=== PATIENT | female | born 1955 | race Caucasian/White ===

== ENCOUNTER 2025-09-04 13:21 | Outpatient (CLI) | payer MEDICARE, SELFPAY ==
--- OUTSIDE RECORDS SUMMARY | 2025-08-29 14:20 | XMS_ITS | Encounter Summary ---
Author Organization [facility] Address [facility] [address] 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 Role Phone Alecia Diggs MD Primary Care Provider [phone] Carla Brown LPN Unavailable Unavailab le Reason for Referral * Imaging (Routine) - Authorized Specialty Diagnoses / Procedures Referred By Norma subramanian Referred To Contact Cardiology Diagnoses Heart murmur Procedures Echo, Adult Transthoracic [place] [address] Phone: tel: fax: Referral ID Status Reason Start Date Expiration Date Visits Requested Visits Authorized [id number] Authorized Perform Procedure 5 02/28/2027 1 1 Reason for Visit * Reason Comments Medicare Annual Wellness Visit Initial Cough Care Gap Closure Declined mammogram, colonoscopy, and vaccines Encounter Details Date Type Department Care Team (Late st Contact Info) Description 08/29/2025 2:20 PM EST Office Visit [facility] [place] [address] [place] [address] Routine general medical examination at a health care facility (Primary Dx); Acquired hypothyroidism; Mixed hyperlipidemia; Prediabetes; Cough, unspecified type; Heart murmur; Dysfunction of both eustachian tubes; Ulnar neuropathy of right upper extremity Social History Tobacco Use Types Packs/Day Years Used Date Smoking Tobacco: Former Cigarettes 0.3 40 Passive Smoke Exposure: Never Smokeless Tobacco: Never Tobacco Cessation:Counseling Given: Not Answered Comments:vape Alcohol Use Standard Drinks/Week Comments Never 0 (1 standard drink = 0.6 oz pur e alcohol) Social Connection and Isolation Panel Answer Date Recorded In a typical week, how many times do you talk on the phone with family, friends, or neighbors? More than three times a week 03/30/2024 How often do you get togethe r with friends or relatives? Once a week 03/30/2024 How often do you attend chur or restorationism services? 1 to 4 times per year 03/30/2024 Do you belong to any clubs o r organizations such as anabaptist groups, unions, fraternal or athletic groups, or school groups? No 03/30/2024 How often do you attend meet ings of the clubs or organizations you belong to? Never 03/30/2024 Are you , , di vorced, , never , or living with a partner? 03/30/2024 AUDIT-C Answer Date Recorded Q1: How often do you have a drink containing alcohol? Never 03/30/2024 Q2: How many drinks containi ng alcohol do you have on a typical day when you are drinking? Patient does not drink Q3: How often do you have si x or more drinks on one occasion? Never 03/30/2024 Overall Financial Resource Strain (CARDIA) Answe r Date Recorded How hard is it for you to pa y for the very basics like food, housing, medical care, and heating? Not very hard 02/01/2023 PHQ-2 Answer Date Recorded Patient Health Questionnaire-2 Score 0 08/29/2025 PHQ-9 Answer Date Recorded Patient Health Questionnaire-9 Score 0 08/29/2025 Humiliation, Afraid, Rape, and Kick questionnair e Answer Date Recorded Within the last year, have y ou been afraid of your partner or ex-partner? No 08/27/2025 Within the last year, have y ou been humiliated or emotionally abused in other ways by your partner or ex-partner? No Within the last year, have y ou been kicked, hit, slapped, or otherwise physically hurt by your partner or ex-partner? No 08/27/2025 Within the last year, have y ou been raped or forced to have any kind of sexual activity by your partner or ex-partner? No 08/27/2025 AUDIT-C Answer Date Recorded Q1: How often do you have a drink containing alcohol? Never 08/27/2025 Q2: How many drinks containi ng alcohol do you have on a typical day when you are drinking? Patient does not drink Q3: How often do you have si x or more drinks on one occasion? Never 08/27/2025 [facility] Occupational Stress Questionnaire Answer Date Recorded Do you feel stress - tense, restless, nervous, or anxious, or unable to sleep at night because your mind is troubled all the time - these days? Not at all 08/27/2025 Exercise Vital Sign Answer Date Recorde d On average, how many days pe r week do you engage in moderate to strenuous exercise (like a brisk walk)? 0 days 08/27/2025 On average, how many minutes do you engage in exercise at this level? 0 min 08/27/2025 Hunger Vital Sign Answer Date Recorded Within the past 12 months, y ou worried that your food would run out before you got the money to buy more. Never true 08/27/20 25 Within the past 12 months, t he food you bought just didn't last and you didn't have money to get more. Never true 08/27/2025 PRAPARE - Transportation Answer Date Re corded In the past 12 months, has l ack of transportation kept you from medical appointments or from getting medications? No 04/2025 In the past 12 months, has l ack of transportation kept you from meetings, work, or from getting things needed for daily living? No 08/27/2025 Housing Stability Vital Sign Answer Jesus e Recorded In the last 12 months, was t here a time when you were not able to pay the mortgage or rent on time? No 08/27/2025 In the past 12 months, how m any times have you moved where you were living? 0 08/27/2025 At any time in the past 12 m [place], were you homeless or living in a detention (including now)? No 08/27/2025 [facility] Utilities Answer Date Recorded In the past 12 months has e electric, gas, oil, or water company threatened to shut off services in your home? No 08/27/2025 PHQ-2A Answer Date Recorded Patient Health Questionnaire-2 Score 0 02/01/2023 Comments Unknown Sex and Gender Information Value Date Recorded Sex Assigned at Not on file Legal Sex Female 6:01 PM EDT Gender Identity Not on file Sexual Orientation Not on file documented as of this encounter Last Filed Vital Signs Vital Sign Reading Time Taken Comments Blood Pressure 126/76 08/29/2025 2:23 PM EST Pulse 74 08/29/2025 2:23 PM EST Temperature 37 C (98.6 F) 08/29/2025 2:23 PM EST Respiratory Rate 14 08/29/2025 2:23 PM EST Oxygen Saturation 95% 08/29/2025 2:23 PM EST Inhaled Oxygen Concentration - - Weight 106 kg (233 lb 7.5 oz) 08/29/2025 2:23 PM EST Height 165.1 cm (5' 5 ) 08/29/2025 2:23 PM EST Body Mass Index 38.85 08/29/2025 2:23 PM EST documented in this encounter Functional Status * Over the past 2 weeks, how often have you been bothered by any of the following problems? Question Answer Date of Assessment Author Little interest or pleasure in doing things Not at all 08/29/2025 2:24 PM EST Jovita Gregory Feeling down, depressed, or hopeless Not at all 08/20 2:24 PM EST Jovita Gregory Patient Health Questionnaire-2 Score 0 08/20 2:24 PM EST Jovita Gregory * Question Answer Date of Assessment Author Trouble falling or staying a sleep, or sleeping too much Not at all 08/29/2025 2:24 PM Jovita Velez Feeling tired or having little energy Not at all 06/2025 2:24 PM Jovita Velez Poor appetite or overeating Not at all 08/29/2025 2: 24 PM EST Jovita Gregory Feeling bad about yourself - or that you are a failure or have let yourself or your family down Not at all 08/29/2025 2:24 PM EST Jovita Gregory Trouble concentrating on thi ngs, such as reading the newspaper or watching television Not at all 08/29/2025 2:24 PM Jovita Velez Moving or speaking so slowly that other people could have noticed. Or the opposite - being so fidgety or restless that you have been moving around a lot more than usual Not at all 08/29/2025 2:24 PM EST Jovita Gregory Thoughts that you would be b jose a off or hurting yourself in some way Not at all 08/29/2025 2:24 PM EST Jovita Gregory Patient Health Questionnaire-9 Score 0 08/20 2:24 PM Jovita Velez * Calculated C-SSRS Risk Score (Lifetime/Recent) Answer Date of Assessment Author No Risk Indicated 08/29/2025 2:25 PM EST Payam Gregory * How difficult have these problems made it for you to do your work, take care of things at home, or get along with other people? Answer Date of Assessment Author Not difficult at all 08/29/2025 2:24 PM Jovita Velez * Question Answer Date of Assessment Author 1. Wish to be (Past 1 Month) No 025 2:25 PM EST Jovita Gregory 2. Non-Specific Active Suici momo Thoughts (Past 1 Month) No 08/29/2025 2:25 PM EST Jovita Gregory 6. Suicidal Behavior (Lifetime) No 2:25 PM EST Jovita Gregory documented as of this encounter Miscellaneous Notes * Clinician Note - Jovita Gregory - 08/29/2025 2:20 PM EST Pt aware of AWV protocol and paper given to patient for review. * Progress Notes - Alecia Diggs MD - 08/29/2025 2:20 PM EST Subsequent Medicare Wellness Visit The ABC's of the Annual Wellness Visit Chief Complaint Patient presents with Medicare Annual Wellness Visit Initial Cough Care Gap Closure Declined mammogram, colonoscopy, and vaccines Health risk assessment completed and reviewed with the patient. HPI: Ema Veliz is a 69 y.o. female who presents for a Subsequent Medicare Wellness Visit. Recent Hospitalizations: Current Medical Providers: Patient Care Team: Alecia Diggs MD as PCP - General Carla Brown LPN as Licensed Practical Nurse Health Habits and Functional and Cognitive Screening: Does the patient have evidence of cognitive impairment? No Activities Daily Living: Hearing and Visual Acuity: Hearing/Eye Exam No results found. Home Risk Assessment: Compared to one year ago, the patient feels her physical health is worse and her mental health is worse. Depression Screen: Over the past 2 weeks, how often have you been bothered by any of the following problems? Little interest or pleasure in doing things: Not at all Feeling down, depressed, or hopeless: Not at all Patient Health Questionnaire-2 Score: 0 Over the past 2 weeks, how often have you been bothered by any of the following problems? Trouble falling or staying asleep, or sleeping too much: Not at all Feeling tired or having little energy: Not at all Poor appetite or overeating: Not at all Feeling bad about yourself - or that you are a failure or have let yourself or your family down: Not at all Trouble concentrating on things, such as reading the newspaper or watching television: Not at all Moving or speaking so slowly that other people could have noticed. Or the opposite - being so fidgety or restless that you have been moving around a lot more than usual: Not at all Thoughts that you would be better off or hurting yourself in some way: Not at all Patient Health Questionnaire-9 Score: 0 Past Medical/Family/Social History: Allergies Latex, Naproxen, Percocet [oxycodone-acetaminophen], Sulfacetamide, Sumatriptan, and Wound dressingadhesive Current Medications[1] Medical/Surgical/Social/Family History I have reviewed and updated the patient history. Problem List[2] Objective ROS: Review of Systems Vitals 11/28/2020 11:16 AM 03/21/2021 12:02 PM 12/02/2021 11:04 AM 04/06/2022 10:14 AM 02/01/2023 10:57 AM 04/06/2024 11:00 AM 08/29/2025 2:23 PM Vitals Systolic 124 146 136 148 138 124 126 Diastolic 78 90 82 80 82 86 76 Heart Rate 81 90 85 80 83 78 74 Temp 37.1 C 37.0 C Resp 16 14 Height (cm) 167.6 cm 165.1 cm 165.1 cm 165.1 cm 165.1 cm 165.1 cm 165.1 cm Weight (kg) 98.7 kg 94.348 kg 101.6 kg 101.6 kg 105.9 kg 107.502 kg 105.9 kg BMI 35.12 kg/m2 34.61 kg/m2 37.27 kg/m2 37.27 kg/m2 38.85 kg/m2 39.44 kg/m2 38.85 kg/m2 BSA (m2) 2.14 m2 2.08 m2 2.16 m2 2.16 m2 2.2 m2 2.23 m2 2.2 m2 Visit Report Report Report Report Report Report Report The patient's weight is above average. The patient received The patient received exercise educationbecause they have an above normal BMI. because they have an above normal BMI. Recent Lab Results: Glucose, Plasma (mg/dL) Date Value 04/10/2024 115 (H) 04/06/2024 93 02/01/2023 113 (H) POCT Hemoglobin A1C (%) Date Value 04/06/2022 5.9 Hemoglobin A1c (%) Date Value 04/06/2024 6.0 (H) 02/01/2023 5.9 (H) 12/02/2021 6.1 (H) BUN, Plasma (mg/dL) Date Value 04/10/2024 8 04/06/2024 8 02/01/2023 11 Creatinine, Plasma (mg/dL) Date Value 04/10/2024 0.56 (L) 04/06/2024 0.68 02/01/2023 0.65 Cholesterol, Plasma (mg/dL) Date Value 04/06/2024 161 02/01/2023 237 (H) 12/02/2021 270 (H) Triglycerides, Plasma (mg/dL) Date Value 04/06/2024 150 (H) 02/01/2023 126 12/02/2021 123 HDL (mg/dL) Date Value 04/06/2024 34 (L) 02/01/2023 54 12/02/2021 59 Assessment/Plan Age-appropriate Screening Schedule: Refer to the list below for future screening recommendations based on patient's age, sex and/or medical conditions. Orders for these recommended tests are listed in the plan section. The patient has been provided with a written plan. Health Maintenance Topic Date Due [facility]-Hepatitis C Screening Never done [facility]-Bone Density Scan Never done [id number] Vaccine (1) Never done [facility]-DTaP,Tdap,and Td Vaccines (1 - Tdap) Never done [facility]-Colorectal Cancer Screening Never done [facility]-RSV Vaccine: 60+ Years or (1 - Risk 50-74 years 1-dose series) Never done [facility]-Breast Cancer Screening Never done [facility]-Pneumococcal Vaccine: 50+ Years (1 of 1 - PCV) Never done [facility]-Zoster Vaccines (1 of 2) Never done [facility]-Diabetes: Hemoglobin A1C 04/06/2025 [facility]-Medicare Annual Wellness (AWV) 04/06/2025 [facility]-Influenza Vaccine (1) Never done [facility]- SDOH Screenings 02/25/2026 [facility]-Depression Screening 08/29/2026 HPV Vaccines (No Doses Required) Completed [facility]-Obesity Intervention Completed [facility]-HIB Vaccines Aged Out [facility]-IPV Vaccines Aged Out [facility]-Hepatitis A Vaccines Aged Out [facility]-Rotavirus Vaccines Aged Out [facility]-Cervical Cancer Screening Discontinued The patient was counseled on the importance of the following screenings: Cardiovascular Risk Diabetes [facility] Preventative Services Quick Reference Medicare Risks and Personalized Health Plan co-morbidities The above risks/problems have been discussed with the patient. Pertinent information has been shared with the patient in the After Visit Summary. Follow up plans and orders are seen below in the Assessment/Plan Section. Advanced Care Planning: has NO advanced directive - not interested in additional information Problem List Items Addressed This Visit Hypothyroidism Relevant Medications levothyroxine (Synthroid, Levoxyl) 137 MCG tablet Health Maintenance Due Topic Date Due [facility]-Hepatitis C Screening Never done [facility]-Bone Density Scan Never done [id number] Vaccine (1) Never done [facility]-DTaP,Tdap,and Td Vaccines (1 - Tdap) Never done [facility]-Colorectal Cancer Screening Never done [facility]-RSV Vaccine: 60+ Years or (1 - Risk 50-74 years 1-dose series) Never done [facility]-Breast Cancer Screening Never done [facility]-Pneumococcal Vaccine: 50+ Years (1 of 1 - PCV) Never done [facility]-Zoster Vaccines (1 of 2) Never done [facility]-Diabetes: Hemoglobin A1C 04/06/2025 [facility]-Medicare Annual Wellness (AWV) 04/06/2025 [facility]-Influenza Vaccine (1) Never done An After Visit Summary and PPPS with all of these plans were given to the patient. Follow Up: No follow-ups on file. Office Progress Note Subjective Ema Veliz is a 69 y.o. female who presents for Medicare Annual Wellness Visit Initial, Cough,and Care Gap Closure (Declined mammogram, colonoscopy, and vaccines). History of Present Illness The patient presents for evaluation of dizziness, heart murmur, weight management, and medication management. In June 2025, she sought medical attention at a walk-in clinic due to respiratory issues. The Benzonate prescription provided significant relief, surpassing the efficacy of her inhaler. She is seeking a prescription for this medication. She has been using Flonase nasal spray for the past two weeks but has not tried any antihistamines. Sudafed induces mild side effects, and she has Chlor-Trimeton at home which tends to help her when she uses it. She is requesting refills for her inhaler and hydrocodone. During her visit to the walk-in clinic, a heart murmur was detected. She is uncertain if this was aresult of her congestion. She reports no shortness of breath or chest pain but does experience fatigue, which she attributes to her lack of vitamin intake. She has been experiencing dizziness for over a week, accompanied by a sensation of clogged ears. This has led her to discontinue the use of her hearing aids due to imbalance. She has no history of earwax issues but has noticed an increase in wax production since starting hearing aid use last year. She is considering the use of GLP-1 for weight loss and ivermectin for potential parasitic infection. She reports no food cravings except for red meat after a two to three-week abstinence. 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 She experiences daily knee pain, which limits her ability to perform her morning routine with the animals and carry a bucket of water during winter. She has discontinued pool activities at [facility]. She needs her Synthroid renewed. She has not eaten anything today except water and Tylenol since 0500 hours. She had 10 days' worth of Synthroid last week and thinks she has three days left. She is going to the eye doctor to get her eyes checked. She is going to the dentist and just got a bridge. She is prediabetic and has been drinking Pepsi. The following sections have been reviewed and updated during this encounter: Tobacco Allergies Meds Problems Med Hx Surg Hx Fam Hx Objective Blood pressure 126/76, pulse 74, temperature 37 ??C (98.6 ??F), resp. rate 14, height 1.651 m (5' 5 ), weight 106 kg (233 lb 7.5 oz), SpO2 95%. Body mass index is 38.85 kg/m??. Physical Exam Constitutional: General: She is not in acute distress. Appearance: She is well-developed. HENT: Head: Normocephalic and atraumatic. Right Ear: Tympanic membrane and external ear normal. Left Ear: Tympanic membrane and external ear normal. Nose: Congestion present. Mouth/Throat: Mouth: Mucous membranes are moist. Pharynx: Oropharynx is clear. Eyes: Extraocular Movements: Extraocular movements intact. Conjunctiva/sclera: Conjunctivae normal. Pupils: Pupils are equal, round, and reactive to light. Neck: Thyroid: No thyromegaly. Cardiovascular: Rate and Rhythm: Normal rate and regular rhythm. Pulses: Normal pulses. Heart sounds: Murmur (systolic) heard. Pulmonary: Effort: Pulmonary effort is normal. Breath sounds: Normal breath sounds. Abdominal: General: Bowel sounds are normal. There is no distension. Palpations: Abdomen is soft. There is no mass. Tenderness: There is no abdominal tenderness. Musculoskeletal: General: Normal range of motion. Cervical back: Normal range of motion and neck supple. Right lower leg: No edema. Left lower leg: No edema. Lymphadenopathy: Cervical: No cervical adenopathy. Skin: General: Skin is warm and dry. Findings: No rash. Neurological: General: No focal deficit present. Mental Status: She is alert and oriented to person, place, and time. Motor: Motor function is intact. Gait: Gait is intact. Deep Tendon Reflexes: Reflexes are normal and symmetric. Psychiatric: Mood and Affect: Mood normal. Behavior: Behavior normal. Assessment/Plan Diagnoses and all orders for this visit: Acquired hypothyroidism - levothyroxine (Synthroid, Levoxyl) 137 MCG tablet; Take 1 tablet by mouth daily. Assessment & Plan Dizziness: - Fluid accumulation in the eustachian tube likely causing pressure on the eardrum, leading to dizziness - Ear examination showed no wax buildup, but nasal passages are swollen - Continue Flonase nasal spray for an additional 2 to 3 weeks - Add an antihistamine like Claritin, Theresa, or Zyrtec - Administer prednisone injection today, followed by a course of prednisone tablets Heart murmur: - Newly detected heart murmur noted during examination - Perform EKG today and schedule echocardiogram to further evaluate murmur - Discussed symptoms such as shortness of breath, fatigue, and chest pain - she has none of these Weight management: - Weight increased from 208 pounds in 03/2021 to 233 pounds currently - Discussed potential benefits and risks of GLP-1 medications for weight loss, including gastrointestinal side effects and long-term nature - Advised maintaining an active lifestyle and considering tsu-efkcrv-wprlioj exercises such as swimming Medication management: - Prescription for levothyroxine 90-day supply with three refills will be sent to pharmacy - Refill hydrocodone for rare use for her pain from arthritis, PDMP appropriate - Continue Flonase nasal spray for an additional 2 to 3 weeks Health maintenance: - Consider receiving pneumonia and tetanus vaccines Follow-up: - Results of blood work will be communicated tomorrow Verbal consent was obtained to use ambient listening technology to assist in the documentation of the encounter: yes [1] Current Outpatient Medications: HYDROcodone-acetaminophen ([place]) 5-325 MG tablet, Take 1 tablet (5 mg of hydrocodone) by mouth every 6 (six) hours if needed for severe pain., Disp: 20 tablet, Rfl: 0 levothyroxine (Synthroid, Levoxyl) 137 MCG tablet, Take 1 tablet by mouth daily., Disp: 10 tablet, Rfl: 0 Ventolin HFA 108 (90 Base) MCG/ACT inhaler, Inhale 2 puffs every 4 (four) hours if needed for shortness of breath., Disp: 1 each, Rfl: 3 [2] Patient Active Problem List Diagnosis Hearing loss Hyperlipidemia Hypothyroidism Ulnar neuropathy Vitamin D deficiency Obesity (BMI 35.0-39.9 without comorbidity) Prediabetes documented in this encounter Plan of Treatment Scheduled Orders Name Type Priority Associated Diagnoses Order Schedule Echo, Adult Transthoracic Complete Echocardiography Routine Heart murmur 1 Occurrences starting 08/29/2025 until 03/02/2027 documented as of this encounter Procedures Procedure Name Priority Date/Time Associated Diagnosis Comments TSH Routine 08/29/2025 3:35 PM EST Acquired hypothyroidism Routine general medical examination at a health care facility HEMOGLOBIN A1C Routine 08/29/2025 3:35 PM EST Routine general medical examination at a health care facility Prediabetes LIPID PROFILE, PLASMA Routine 08/29/2025 3:35 PM EST Routine general medical examination at a health care facility Mixed hyperlipidemia COMPREHENSIVE METABOLIC PANEL, PLASMA Routine 08/29/2025 3:35 PM EST Routine general medical examination at a health care facility Mixed hyperlipidemia documented in this encounter Results * (ABNORMAL) Lipid Profile, Plasma (08/29/2025 3:35 PM EST) Cholesterol, Plasma 230(H) <200 mg/dL 08/29/2025 7:30 PM EST [facility] Comment: Cholesterol Reference Range (age >17 years): Desirable <200 mg/dL Borderline 200 to 239 mg/dL Undesirable >239 mg/dL HDL 62 >=50 mg/dL 08/29/2025 7:30 PM EST [facility] Comment: HDL Cholesterol Reference Ranges (age >17 years): Female, acceptable > or = 50 mg/dL Male, acceptable > or = 40 mg/dL Triglycerides, Plasma 91 <150 mg/dL 08/29/2025 7:30 PM EST [facility] Comment: Triglyceride Reference Range (age >17 years): Desirable: <150 mg/dL Borderline high: 150 to 199 mg/dL High: 200 to 499 mg/dL Very high: >499 mg/dL Increased risk of pancreatitis: >1000 mg/dL Cholesterol/HDL Ratio 4 08/29/2025 7:30 PM EST [facility] LDL, Calculated 152(H) <100 mg/dL 7:30 PM EST [facility] Comment: LDL Cholesterol Reference Range (age >17 years): Optimal: <100 mg/dL Near or above optimal: 100 - 129 mg/dL Borderline high: 130 - 159 mg/dL High: 160 - 189 mg/dL Very high: >189 mg/dL LDL Cholesterol Reference Range (age <18 years): Desirable: <110 mg/dL Borderline: 110 - 129 mg/dL Undesirable: >130 mg/dL LDL Cholesterol is calculated using the Haji/NIH equation. Fasting greater than or equal to 12 hours? Unknown 08/29/2025 7:30 PM EST [facility] Blood Venous blood specimen / Unknown Venipuncture / Unknown 08/29/2025 3:35 PM EST 08/29/2025 3:35 PM EST Alecia Diggs MD LAB BLOOD ORDERABLES Final Re sult Performing Organization Address [facility] Co de Phone Number [facility] [address] [place] [address] * Thyroid Stimulating Hormone, Plasma (08/29/2025 3:35 PM EST) Thyroid Stimulating Hormone, Plasma 2.77 0.40 - 4.20 uIU/mL 08/29/2025 7:30 PM EST [facility] Blood Venous blood specimen / Unknown Venipuncture / Unknown 08/29/2025 3:35 PM EST 08/29/2025 3:35 PM EST Alecia Diggs MD LAB BLOOD ORDERABLES Final Re sult Performing Organization Address City/[facility]/ZIP Co de Phone Number [facility] [address] [place] [address] * (ABNORMAL) Hemoglobin A1c (08/29/2025 3:35 PM EST) Hemoglobin A1c 6.0(H) <5.7 % 08/29/2025 8:09 PM EST [facility] Blood Venous blood specimen / Unknown Venipuncture / Unknown 08/29/2025 3:35 PM EST 08/29/2025 3:35 PM EST Narrative [facility] - 08/29/2025 8:09 PM EST HA1C Interpretive Data: Diagnosis of Diabetes: Diabetic > or = 6.5% Pre-diabetic 5.7 to 6.4% Non-diabetic < or = 5.6% Glycemic Targets for Type I and Type II Diabetics: Non- Adults <7.0% Adults <6.0% Children and Adolescents <7.5% Source: [place] [employer]. Standards of medical care in diabetes,2017. Diabetes Care.2017:40 (suppl 1):S1-S135. us Alecia Diggs MD LAB BLOOD ORDERABLES Final Re sult [facility] [address] [place] [address] * (ABNORMAL) Comprehensive Metabolic Panel, Plasma (08/29/2025 3:35 PM EST) Glucose, Plasma 92 74 - 99 mg/dL 08/29/2025 7:30 PM EST [facility] BUN, Plasma 12 8 - 23 mg/dL 08/29/2025 7:30 PM EST [facility] Creatinine, Plasma 0.63 0.60 - 1.10 mg/dL 08/29/2025 7:30 PM EST [facility] BUN/Creatinine Ratio 19 08/29/2025 7:30 PM EST [facility] Sodium, Plasma 138 136 - 145 mmol/L 08/29/2025 7:30 PM EST [facility] Potassium, Plasma 3.5(L) 3.6 - 4.9 mmol/L 08/29/2025 7:30 PM EST [facility] Chloride, Plasma 98 97 - 107 mmol/L 08/29/2025 7:30 PM EST [facility] CO2, Plasma 28 22 - 29 mmol/L 08/29/2025 7:30 PM EST [facility] Anion Gap 12 6 - 16 mmol/L 08/29/2025 7:30 PM EST [facility] Total Calcium, Plasma 9.4 8.9 - 10.2 mg/dL 08/29/2025 7:30 PM EST [facility] Total Protein 7.5 6.3 - 7.9 g/dL 08/29/2025 7:30 PM EST [facility] Albumin, Plasma 4.4 3.5 - 5.2 g/dL 08/29/2025 7:30 PM EST [facility] AST, Plasma 18 10 - 35 U/L 08/29/2025 7:30 PM EST [facility] ALT, Plasma 18 10 - 35 U/L 08/29/2025 7:30 PM EST [facility] Alkaline Phosphatase, Plasma 106 46 - 142 U/L 08/29/2025 7:30 PM EST [facility] Total Bilirubin, Plasma 0.7 0.2 - 1.1 mg/dL 08/29/2025 7:30 PM EST [facility] eGFRcr 97.4 mL/min/1.7 3m*2 08/29/2025 7:30 PM EST [facility] Comment:Reported eGFRcr in m L/min/1.73m2 is based the CKD-EPI 2020 equation that does not use a race coefficient. 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 documented in this encounter Administered Medications Inactive Administered Medications - up to 3 most recent administrations Medication Order MAR Action Action Date Dose Rate Site methylPREDNISolone acetate (DEPO-Medrol) injection 80 mg 80 mg, Intramuscular, Once, 1 dose, On Wed08/29/25 at 1615, RoutineIndications:Dysfu nction of both eustachian tubes Given 08/29/2025 3:27 PM EST 80 mg Left Ventrogluteal documented in this encounter Additional Health Concerns Assessment Noted Time PHQ-9 Depression Total Score: 0 08/29/20 2:24 PM EST A fall risk assessment has been complete d for the patient 08/29/2025 2:24 PM EST A Body Mass Index follow-up plan has been documented for the patient 08/29/2025 3:39 PM EST documented as of this encounter Care Teams Small Machine Bindery Operator Relationship Specialty Start Date End Date Alecia Diggs MD [address] [place] [address] PCP - General 01/31/21 Carla Brown LPN VALUE-BASED TRANSFORMATION PROGRAM None Licensed Practical Nurse 08/23/25 documented as of this encounter
--- NOTE | 2025-09-04 13:24 | CA_ITS ---
APPROVED REPORT EXAM: Comprehensive 2D, Doppler, and color-flow Echocardiogram Fire Suppression Captain: Taylor Doty RVT Ht: 5 ft 4 in Wt: 208lbs BSA: 1.99 BP: 140/70 mmHg Indications: MURMUR 2D Dimensions LA Volume 16.90 mL LA Volume Index 8.49 mL/m2 (M/F) 16-34 M-Mode Dimensions RVDd 2.89 cm (0.9-2.6) LA Diam 3.61 cm (1.9-4.0) LVDd 4.30 cm (3.5-5.7) LVDs 2.69 cm (3.5-5.7) IVSd 1.12 cm (0.6-1.1) PWd 0.60 cm (0.6-1.1) EF (Teich) 67.70% FS 37.40% EDV (Teich) 83.10 mL TAPSE 2.66 (<1.7) ESV (Teich) 26.80 mL LV Diastology E Decel Time 183 (160-240 msec) E/A Ratio 0.8 Aortic Valve EARL Index 1.40 cm2/m2 AoV Peak Jerardo. 204.0 (50-130 cm/s) AO Peak GR. 16.70 mmHg AO Mean GR. 8.90 (<5 mmHg) AO VTI 42.6 (18-25 cm) EARL (VTI) 2.86 (2.5-4.5 cm2) Mitral Valve MV E Max Jerardo. 108.0 (40-130 cm/s) MV A Velocity 140.0 (40-130 cm/s) E/A Ratio 0.77 MV PHT 54.0 ms Pulmonary Valve PV Peak Velocity 84.0 (50-150 cm/s) Left Ventricle The left ventricle is normal size. Left ventricular systolic function is normal. The left ventricular ejection fraction is within the normal range. There is increased left ventricular wall thickness. There is normal LV segmental wall motion. Transmitral Doppler flow pattern suggests impaired LV relaxation. LVEF is 55% Right Ventricle The right ventricle is normal size. The right ventricular systolic function is normal. Atria Left atrium is mildly dilated. Right atrium is mildly dilated. There is no color Doppler evidence of interatrial shunt. Aortic Valve The aortic valve is mildly thickened. Aortic sclerosis, but no evidence of aortic stenosis. Trace aortic regurgitation is present. Mitral Valve The mitral valve is normal in structure. No evidence of mitral valve stenosis. Trace mitral regurgitation is present. Tricuspid Valve The tricuspid valve leaflets are thin and pliable. Trace tricuspid regurgitation. There is insufficient TR jet to estimate RVSP. Pulmonic Valve The pulmonary valve is grossly normal in structure. Trace pulmonic valve regurgitation is present. Great Vessels The aortic root is normal in size. IVC is normal in size and collapses >50% with inspiration. Pericardium There is no pericardial effusion. Other Information Study Quality: Fair Conclusion Normal biventricular systolic function. Mild biatrial dilation. No significant valvular stenosis or regurgitation. Electronically signed by : Tawana Suarez MD 09/14/2025 07:15:29
--- OUTSIDE RECORDS SUMMARY | 2025-09-04 13:24 | XMS_ITS | Encounter Summary ---
Author Organization Healthcare Address [address] [id number] Care Team Providers Care Brewery Worker Name Role Phone Alecia Diggs MD Primary Care Provider [phone] Carla Brown LPN Unavailable Unavailab le Encounter Details Date Type Department Care Team (Latest Contact Info) Description 08/29/2025 Travel Social History Tobacco Use Types Packs/Day Years Used Date Smoking Tobacco: Former Cigarettes 0.3 40 Passive Smoke Exposure: Never Smokeless Tobacco: Never Comments:vape Alcohol Use Standard Drinks/Week Comments Never [...] How often do you attend chur or anabaptist services? 1 to 4 times per year 03/30/2024 Do you belong to any clubs o r organizations such as oriental orthodox groups, unions, fraternal or athletic groups, or [...] more drinks on one occasion? Never 08/27/2025 [facility] Occupat ional [facility] - Occupational Stress Questionnaire Answer Date Recorded [...] any time in the past 12 m [facility], were you homeless or living in a jail (including now)? No 08/27/2025 [facility] Utilities Answer Date Recorded In the past 12 months has th e electric, gas, oil, or water company threatened to shut off services in your home? No 08/27/2025 PHQ-2A Answer Date Recorded Patient Health Questionnaire-2 Score 0 02/01/2023 Comments Unknown Sex and Gender Information Value Date Recorded Sex Assigned at Not on file Legal Sex Female 6:01 PM EDT Gender Identity Not on file Sexual Orientation Not on file documented as of this encounter Functional Status * Over the past 2 weeks, how often have you been bothered by any of the following problems? Question Answer Date of Assessment Author Little interest or pleasure in doing things Not at all 08/29/2025 2:24 PM Jovita Velez Feeling down, depressed, or hopeless Not at all 08/20 2:24 PM Jovita Velez Patient Health Questionnaire-2 Score 0 08/20 2:24 PM Jovita Velez * Question Answer Date of Assessment Author Trouble falling or staying a sleep, or sleeping too much Not at all 08/29/2025 2:24 PM Jovita Velez Feeling tired or having little energy Not at all 06/2025 2:24 PM Jovita Velez Poor appetite or overeating Not at all 08/29/2025 2: 24 PM Jovita Velez Feeling bad about yourself - or that you are a failure or have let yourself or your family down Not at all 08/29/2025 2:24 PM Jovita Velez Trouble concentrating on thi ngs, such as reading the newspaper or watching television Not at all 08/29/2025 2:24 PM Jovita Velez Moving or speaking so slowly that other people could have noticed. Or the opposite - being so fidgety or restless that you have been moving around a lot more than usual Not at all 08/29/2025 2:24 PM Jovita Velez Thoughts that you would be b jose a off or hurting yourself in some way Not at all 08/29/2025 2:24 PM Jovita Velez Patient Health Questionnaire-9 Score 0 08/20 2:24 PM EST Jovita Gregory * Calculated C-SSRS Risk Score (Lifetime/Recent) Answer Date of Assessment Author No Risk Indicated 08/29/2025 2:25 PM Payam Velez * How difficult have these problems made it for you to do your work, take care of things at home, or get along with other people? Answer Date of Assessment Author Not difficult at all 08/29/2025 2:24 PM Jovita Velez * Question Answer Date of Assessment Author 1. Wish to be (Past 1 Month) No 025 2:25 PM Jovita Velez 2. Non-Specific Active Suici momo Thoughts (Past 1 Month) No 08/29/2025 2:25 PM Jovita Velez 6. Suicidal Behavior (Lifetime) No 2:25 PM Jovita Velez documented as of this encounter Plan of Treatment Not on file documented as of this encounter Visit Diagnoses Not on filedocumented in this encounter Additional Health Concerns Assessment Noted Time PHQ-9 Depression Total Score: 0 08/29/20 25 2:24 PM EST A fall risk assessment has been complete d for the patient 08/29/2025 2:24 PM EST A Body Mass Index follow-up plan has been documented for the patient 08/29/2025 3:39 PM EST documented as of this encounter Care Teams Brewery Worker Relationship Specialty Start Date End Date Alecia Diggs MD [address] [place] [id number] PCP - General 01/31/21 Carla Brown LPN VALUE-BASED TRANSFORMATION PROGRAM None Licensed Practical Nurse 08/23/25 documented as of this encounter
--- OUTSIDE RECORDS SUMMARY | 2025-09-04 13:24 | XMS_ITS | Encounter Summary ---
Author Organization Healthcare Address [address] [id number] Care Team Providers Care Regulatory Internship Name Role Phone Alecia Diggs MD Primary Care Provider [phone] Carla Brown LPN Unavailable Unavailab le Encounter Details Date Type Department Care Team (Late st Contact Info) Description 08/20/2025 Telephone [facility] [address] [place] [phone] Alecia Diggs MD [address] [place] [address] Social History Tobacco Use Types Packs/Day Years Used Date Smoking Tobacco: Former Cigarettes 0.3 40 Smokeless Tobacco: Never Comments:vape Humiliation, Afraid, Rape, and Kick questionnair e Answer Date Recorded Within the last year, have y ou been afraid of your partner or ex-partner? No 03/30/2024 Within the last year, have y ou been humiliated or emotionally abused in other ways by your partner or ex-partner? No Within the last year, have y ou been kicked, hit, slapped, or otherwise physically hurt by your partner or ex-partner? No 03/30/2024 Within the last year, have y ou been raped or forced to have any kind of sexual activity by your partner or ex-partner? No 03/30/2024 Social Connection and Isolation Panel Answer Date Recorded In a typical week, how many times do you talk on the phone with family, friends, or neighbors? More than three times a week 03/30/2024 How often do you get togethe r with friends or relatives? Once a week 03/30/2024 How often do you attend chur ch or denominational services? 1 to 4 times per year 03/30/2024 Do you belong to any clubs o r organizations such as baptism groups, unions, fraternal or athletic groups, or [...] Date Recorded Patient Health Questionnaire-2 Score 0 04/06/2024 [facility] Occupat ional [facility] - Occupational Stress Questionnaire Answer Date Recorded Do you feel stress - tense, restless, nervous, or anxious, or unable to sleep at night because your mind is troubled all the time - these days? Not at all 03/30/2024 Exercise Vital Sign Answer Date Recorde d On average, how many days pe r week do you engage in moderate to strenuous exercise (like a brisk walk)? 0 days 03/30/2024 On average, how many minutes do you engage in exercise at this level? 0 min 03/30/2024 Hunger Vital Sign Answer Date Recorded Within the past 12 months, y ou worried that your food would run out before you got the money to buy more. Never true 03/30/20 24 Within the past 12 months, t he food you bought just didn't last and you didn't have money to get more. Never true 03/30/2024 PRAPARE - Transportation Answer Date Re corded In the past 12 months, has l ack of transportation kept you from medical appointments or from getting medications? No 03/20 In the past 12 months, has l ack of transportation kept you from meetings, work, or from getting things needed for daily living? No 03/30/2024 Housing Stability Vital Sign Answer Jesus e Recorded In the last 12 months, was t here a time when you were not able to pay the mortgage or rent on time? No 03/30/2024 In the last 12 months, how many places have you lived? 1 03/30/2024 In the last 12 months, was t here a time when you did not have a steady place to sleep or slept in a nursing home (including now)? No 03/30/2024 Utilities Answer Date Recorded In the past 12 months has th e electric, gas, oil, or water company threatened to shut off services in your home? No 03/30/2024 PHQ-2A Answer Date Recorded Patient Health Questionnaire-2 Score 0 02/01/2023 Comments Unknown Sex and Gender Information Value Date Recorded Sex Assigned at Not on file Legal Sex Female 6:01 PM EDT Gender Identity Not on file Sexual Orientation Not on file documented as of this encounter Miscellaneous Notes * Telephone Encounter - Candi Nicholas - 08/20/2025 2:38 PM EST Short supply of Levothyroxine sent to pharmacy , appointment scheduled 08/29/2025 * Telephone Encounter - Shaq Lane - 08/20/2025 2:21 PM EST Clinical Concern/Question Reason for Call: Pt is having trouble getting enough Levothyroxine (will be 8 days short) Please call Pt to discuss where it is called into. Best contact number: [phone] (mobile) Optimal time of day to reach caller: ANYTIME Additional comments/information from caller: None Note: Please do not reply to this message. Follow-up communication and further actions as a result of this message need to be communicated with the patient directly, if the patient is not active onMyChart. If the patient is active on MyChart, they will receive notification of the communication/outcome via [email or web address]. documented in this encounter Plan of Treatment Not on file documented as of this encounter Visit Diagnoses Not on filedocumented in this encounter Additional Health Concerns Assessment Noted Time A fall risk assessment has been complete d for the patient 04/06/2024 11:02 AM EDT A Body Mass Index follow-up plan has been documented for the patient 04/06/2024 12:08 PM EDT documented as of this encounter Care Teams Regulatory Internship Relationship Specialty Start Date End Date Alecia Diggs MD [address] [place] [address] PCP - General 01/31/21 Carla Brown LPN VALUE-BASED TRANSFORMATION PROGRAM None Licensed Practical Nurse 08/23/25 documented as of this encounter
--- OUTSIDE RECORDS SUMMARY | 2025-09-04 13:24 | XMS_ITS | Encounter Summary ---
Author Organization Healthcare Address [address] [id number] Care Team Providers Care Agitator Operator Name Role Phone Alecia Diggs MD Primary Care Provider [phone] Carla Brown LPN Unavailable Unavailab le Encounter Details Date Type Department Care Team (Late st Contact Info) Description 08/30/2025 Results Follow-Up [facility] [address] [place] [phone] Alecia Diggs MD [address] [place] [address] Social History Tobacco Use Types [...] often do you attend chur ch or uatsdin services? 1 to 4 times per year 03/30/2024 Do you belong to any clubs o r organizations such as sikh groups, unions, fraternal or athletic groups, or [...] you are drinking? Patient does not drink 4 Q3: How often do you have si [...] you are drinking? Patient does not drink 5 Q3: How often do you have si x or more drinks on one occasion? Never 08/27/2025 [facility] [place] of Occupat ional Health - Occupational Stress Questionnaire Answer Date [...] any time in the past 12 m [facility], were you homeless or living in a long-term (including now)? No 08/27/2025 [facility] Utilities Answer Date Recorded In the [...] on file documented as of this encounter Plan of [...] documented as of this encounter Care Teams Agitator Operator Relationship Specialty Start Date End Date Alecia Diggs MD [facility] [address] [place] [phone] PCP - General 01/31/21 Carla Brown LPN VALUE-BASED TRANSFORMATION PROGRAM None Licensed Practical Nurse 08/23/25 documented as of this encounter
--- OUTSIDE RECORDS SUMMARY | 2025-09-04 13:24 | XMS_ITS | Encounter Summary ---
Author Organization [facility] Address [facility] [address] [id number] Care Team Providers Care Accounts Payable Representative Name Role Phone Alecia Diggs MD Primary Care Provider [phone] Reason for Visit * Reason Onset Date Comments Med Refill 08/20/2025 Encounter Details Date Type Department Care Team (Late st Contact Info) Description 08/20/2025 Refill [facility] [address] [place] [phone] Alecia Diggs MD [address] [place] [address] Social History Tobacco Use Types [...] often do you attend chur ch or restorationism services? 1 to 4 times per year 03/30/2024 Do you belong to any clubs o r organizations such as druze groups, unions, fraternal or athletic groups, or [...] Recorded Patient Health Questionnaire-2 Score 0 04/06/2024 [facility] of Occupat ional Health - Occupational Stress [...] place to sleep or slept in a chcf (including now)? No 03/30/2024 Utilities Answer Date [...] documented as of this encounter Care Teams Accounts Payable Representative Relationship Specialty Start Date End Date Alecia Diggs MD [address] [place] [phone] PCP - General 01/31/21 documented as of this encounter
--- OUTSIDE RECORDS SUMMARY | 2025-09-04 13:24 | XMS_ITS | Encounter Summary ---
Author Organization Healthcare Address [address] [place] [address] Care Team Providers Care Care Attendant Name Role Phone Alecia Diggs MD Primary Care Provider [phone] Carla Brown LPN Unavailable Unavailab le Reason for Visit * Reason Comments AWV Encounter Details Date Type Department Care Team (Late st Contact Info) Description 08/24/2025 Patient Outreach [facility] [address] [facility] [address] [place] [address] Carla Brown LPN VALUE-BASED TRANSFORMATION PROGRAM None AWV Social History Tobacco Use Types Packs/Day Years [...] often do you attend chur ch or rastafarian services? 1 to 4 times per year 03/30/2024 Do you belong to any clubs o r organizations such as yazdanism groups, unions, fraternal or athletic groups, or [...] Recorded Patient Health Questionnaire-2 Score 0 04/06/2024 [facility] of Occupat ional Health - Occupational Stress [...] place to sleep or slept in a group home (including now)? No 03/30/2024 Utilities Answer [...] as of this encounter Miscellaneous Notes * Progress Notes - Carla Brown LPN - 08/24/2025 10:18 AM EST 08/24/2025 AWV Call # 2 pt returned call 2 Patient Reached: Y HRA Completed: N 6-Item Cognitive Screen Completed: N Outcome: Patient would like a call back on Wednesday after 11am 08/24/2025 AWV Call # 2 Patient Reached: N Outcome: Unable to reach patient for AWV screening. documented in this encounter Plan of Treatment [...] documented as of this encounter Care Teams Care Attendant Relationship Specialty Start Date End Date Alecia Diggs MD [address] [place] [phone] PCP - General 01/31/21 Carla Brown LPN VALUE-BASED TRANSFORMATION PROGRAM None Licensed Practical Nurse 08/23/25 documented as of this encounter
--- OUTSIDE RECORDS SUMMARY | 2025-09-04 13:24 | XMS_ITS | Encounter Summary ---
Author Organization Healthcare Address [address] [place] [address] Care Team Providers Care Milking System Installer Name Role Phone Alecia Diggs MD Primary Care Provider [phone] Carla Brown LPN Unavailable Unavailab le Reason for Visit * Reason Comments AWV Encounter Details Date Type Department Care Team (Late st Contact Info) Description 08/27/2025 Patient Outreach POPULATION [facility] [address] [facility] [place], [address] [place] [address] Carla Brown LPN VALUE-BASED TRANSFORMATION PROGRAM None AWV Social History Tobacco Use Types Packs/Day Years Used Date Smoking Tobacco: Former Cigarettes 0.3 40 Smokeless Tobacco: Never Comments:vape Alcohol Use Standard [...] often do you attend chur ch or anabaptism services? 1 to 4 times per year 03/30/2024 Do you belong to any clubs o r organizations such as worship groups, unions, fraternal or athletic groups, or [...] Recorded Patient Health Questionnaire-2 Score 0 04/06/2024 Humiliation, Afraid, Rape, and Kick questionnair e [...] more drinks on one occasion? Never 08/27/2025 [facility] - Occupational Stress Questionnaire Answer Date [...] any time in the past 12 m [place], were you homeless or living in a long term (including now)? No 08/27/2025 [facility] Utilities Answer Date Recorded In the past 12 months has th e [employer], gas, oil, or water company threatened to [...] as of this encounter Functional Status * AUDIT-C Score Answer Date of Assessment Author 0 08/27/2025 12:14 PM Carla Coombs LPN * Question Answer Date of Assessment Author Q1: How often do you have a drink containing alcohol? Never 08/27/2025 12:14 PM Carla Martines LPN Q2: How many drinks containing alcohol do you have on a typical day when you are drinking? Patient does not drink 08/27/2025 12:14 PM Carla Martines LPN Q3: How often do you have six or more drinks on one occasion? Never 08/27/2025 12:14 PM Carla Martines LPN documented as of this encounter Miscellaneous Notes * Progress Notes - Carla Brown LPN - 08/27/2025 10:52 AM EST 08/27/2025 AWV Call # 3 Patient Reached: Y HRA Completed: y 6-Item Cognitive Screen Completed: y Care Gaps Discussed: Annual Wellness Visit (AWV) Outcome: Discussed the importance of an annual wellness visit, reviewed medications, updated the SDOH assessment, updated learning needs, updated STEADI fall risk, and reminded the patient of the date and time of the upcoming appointment. Social Drivers of Health with Concerns Tobacco Use: Medium Risk (08/27/2025) Patient History Smoking Tobacco Use: Former Smokeless Tobacco Use: Never Passive Exposure: Not on file Physical Activity: Inactive (08/27/2025) Exercise Vital Sign Days of Exercise per Week: 0 days Minutes of Exercise per Session: 0 min documented in this encounter Plan of Treatment Not on file documented as of this encounter Visit Diagnoses Not on filedocumented in this encounter Additional Health Concerns Assessment Noted Time A fall risk assessment has been complete d for the patient 08/27/2025 12:17 PM EST A Body Mass Index follow-up plan has been documented for the patient 04/06/2024 12:08 PM EDT documented as of this encounter Care Teams Milking System Installer Relationship Specialty Start Date End Date Alecia Diggs MD [address] [place] [id number] PCP - General 01/31/21 Carla Brown LPN VALUE-BASED TRANSFORMATION PROGRAM None Licensed Practical Nurse 08/23/25 documented as of this encounter
--- OUTSIDE RECORDS SUMMARY | 2025-09-04 13:24 | XMS_ITS | Encounter Summary ---
Author Organization Healthcare Address [address] [id number] Care Team Providers Care Telemarketing Supervisor Name Role Phone Alecia Diggs MD Primary Care Provider [phone] Carla Brown LPN Unavailable Unavailab le Reason for Visit * Reason Comments Med Refill Encounter Details Date Type Department Care Team (Late st Contact Info) Description 08/20/2025 Refill [facility] [address] [place] [address] Alecia Diggs MD [address] [place] [address] Acquired hypothyroidism Social History Tobacco Use Types Packs/Day Years [...] often do you attend chur ch or sabianist services? 1 to 4 times per year [...] Recorded Patient Health Questionnaire-2 Score 0 04/06/2024 [facility] - Occupational Stress [...] place to sleep or slept in a [place] facility (including now)? No 03/30/2024 Utilities Answer Date [...] encounter Miscellaneous Notes * Telephone Encounter - Jovita Gregory - 08/20/2025 3:13 PM EST Short supply sent documented in this encounter Plan of Treatment Not on file documented as of this encounter Visit Diagnoses Diagnosis Acquired hypothyroidism Unspecified hypothyroidism documented in this encounter Additional Health Concerns Assessment Noted Time A fall risk assessment has been complete d for the patient 04/06/2024 11:02 AM EDT A Body Mass Index follow-up plan has been documented for the patient 04/06/2024 12:08 PM EDT documented as of this encounter Care Teams Telemarketing Supervisor Relationship Specialty Start Date End Date Alecia Diggs MD [address] [place] [id number] PCP - General 01/31/21 Carla Brown LPN VALUE-BASED TRANSFORMATION PROGRAM None Licensed Practical Nurse 08/23/25 documented as of this encounter
--- OUTSIDE RECORDS SUMMARY | 2025-09-04 13:24 | XMS_ITS ---
Author Organization [facility] Address [address] [place] [address] Care Team Providers Care Econometrics Professor Name Role Phone Alecia Diggs MD Primary Care Provider [phone] Carla Brown LPN Unavailable Unavail le Annual Wellness Status:Active (Active) Program category:Care Coordination Start date:08/23/2025 Enrollment date:08/27/2025 Enrollment reason:Identified using claims or encounter data Case Team Name Relationship Phone Carla Brown LPN(Responsible Staff) License d Practical Nurse Continued Care and Services Coordination
--- OUTSIDE RECORDS SUMMARY | 2025-09-04 13:24 | XMS_ITS | Clinical Summary ---
Author Organization [facility] Address [address] [id number] Care Team Providers Care Production Line Mechanic Name Role Phone Alecia Diggs MD Primary Care Provider [phone] Carla Brown COMMUNITY LIAISON Unavailable Unavailab le Allergies Active Allergy Reactions Criticality Noted Date Comments Latex Other - please docum ent in the comment field Low 04/06/2024 Naproxen Unknown - Patient st ates they do not know rxn details Low 12/14/2014 Oxycodone-Acetaminophen Unknown - Patien t states they do not know rxn details Low 12/14/2014 Sulfacetamide Unknown - Patient st ates they do not know rxn details Low 12/14/2014 Sumatriptan Unknown - Patient st ates they do not know rxn details Low 12/14/2014 Wound Dressing Adhesive Unknown - Patien t states they do not know rxn details Low 12/14/2014 Medications benzonatate (Tessalon) 100 MG capsuleIndications :Cough, unspecified type Take 1 capsule by mouth 3 times a day as needed for cough. Do not crush or chew. 42 capsule 08/29/20 25 026 Active levothyroxine (Synthroid, Levoxyl) 137 MCG tabletIndications: Acquired hypothyroidism Take 1 tablet by mouth daily. 90 tablet 3 08/29/20 25 Active HYDROcodone-acetam inophen (P[place]kin) 5-325 MG tabletIndications: Ulnar neuropathy of right upper extremity Take 1 tablet by mouth every 6 hours as needed for severe pain. 20 tablet 08/29/20 25 Active Ventolin HFA 108 (90 Base) MCG/ACT inhalerIndications :Cough, unspecified type Inhale 2 puffs every 4 hours as needed for shortness of breath. 1 each 3 08/29/20 25 Active predniSONE (Deltasone) 20 MG tabletIndications: Dysfunction of both eustachian tubes Take 3 tabs (60mg) daily for 3 days, then take 2 tabs (40mg) daily for 3 days, then take 1 tab (20mg) daily for 3 days. 18 tablet 08/29/20 25 025 Active Ventolin HFA 108 (90 Base) MCG/ACT inhaler Inhale 2 puffs every 4 (four) hours if needed for shortness of breath. 1 each 3 02/02/20 23 025 Discontin ued(Reord er) HYDROcodone-acetam inophen ([place]) 5-325 MG tabletIndications: Ulnar neuropathy of right upper extremity Take 1 tablet (5 mg of hydrocodone) by mouth every 6 (six) hours if needed for severe pain. 20 tablet 04/06/20 24 025 Discontin ued(Reord er) levothyroxine (Synthroid, Levoxyl) 137 MCG tabletIndications: Acquired hypothyroidism Take 1 tablet (137 mcg) by mouth 1 (one) time each day. 30 tablet 11 07/27/20 24 025 Discontin ued(Reord er) levothyroxine (Synthroid, Levoxyl) 137 MCG tabletIndications: Acquired hypothyroidism Take 1 tablet by mouth daily. 10 tablet 08/20/20 25 025 Discontin ued(Reord er) Hospital, Clinic, or Other Facility Administered Medication Ordered Dose Route Frequency Start Date End Date Status methylPREDNISolone acetate (DEPO-Medrol) injection 80 mgIndications:Dysfunction of both eustachian tubes 80 mg IM Once 08/29/2025 08/29/2025 Ended Active Problems Problem Noted Date Diagnosed Date Prediabetes 04/06/2022 Obesity (BMI 35.0-39.9 without comorbidity) 11/18 Vitamin D deficiency 04/29/2018 Hearing loss 04/16/2016 Ulnar neuropathy 04/16/2016 Hyperlipidemia 12/15/2014 Hypothyroidism 12/15/2014 Encounters Date Type Department Care Team Description 08/30/2025 Results Follow-Up [facility] [address] [place] [address] Alecia Diggs MD 08/30/2025 Telephone [facility] [address] [place] [address] Alecia Diggs MD N Clinical Concern/Question (Thyroid medication) 08/29/2025 2:20 PM EST Office Visit [facility] [address] [place] [address] Alecia Diggs MD Routine general medical examination at a [facility] facility (Primary Dx); Acquired hypothyroidism; Mixed hyperlipidemia; Prediabetes; Cough, unspecified type; Heart murmur; Dysfunction of both eustachian tubes; Ulnar neuropathy of right upper extremity 08/29/2025 Travel 08/27/2025 Patient Outreach POPULATION [address], [facility] [address] [place] [address] Carla Brown, COMMUNITY LIAISON AWV 08/24/2025 Patient Outreach POPULATION [address] [place], [facility] [address] [place] [address] Carla Brown, COMMUNITY LIAISON AWV 08/23/2025 Patient Outreach POPULATION [address], [facility] [address] [place] [address] Carla Brown, COMMUNITY LIAISON AWV 08/20/2025 Refill [facility] [address] [place] [address] Alecia Diggs MD 08/20/2025 Telephone [facility] [address] [place] [address] Alecia Diggs MD 08/20/2025 Refill [facility] [address] [place] [address] Alecia Diggs MD Acquired hypothyroidism 08/06/2025 Refill [facility] [address] [place] [address] Alecia Diggs MD Acquired hypothyroidism from Last 3 Months Social History Tobacco Use Types Packs/Day Years [...] How often do you attend chur or buddhism services? 1 to 4 times per year 03/30/2024 Do you belong to any clubs o r organizations such as evangelical groups, unions, fraternal or athletic groups, or [...] more drinks on one occasion? Never 08/27/2025 [facility] Questionnaire Answer Date [...] any time in the past 12 m [facility], were you homeless or living in a half-way (including now)? No 08/27/2025 [facility] Utilities Answer Date Recorded In the past 12 months has th [employer], gas, oil, or water company threatened to shut off services in your home? No 08/27/2025 PHQ-2A Answer Date Recorded Patient Health Questionnaire-2 Score 0 02/01/2023 Comments Unknown Sex and Gender Information Value Date Recorded Sex Assigned at Not on file Legal Sex Female 6:01 PM EDT Gender Identity Not on file Sexual Orientation Not on file Last Filed Vital Signs Vital Sign Reading [...] Mass Index 38.85 08/29/2025 2:23 PM EST Plan of Treatment Health Maintenance Due Date Last Done Comments [facility]-Bone Density Scan 1955 [facility]-Hepatitis C Screening 1955 [facility]-Infant/Child/Adol SDOH Screenings 1955 [id number] Vaccine (#1) 04/22/1958 [facility]-DTaP,Tdap,and Td Vaccines (1 - Tdap) 1976 [facility]-Zoster Vaccines (1 of 2) 1976 CT Colonography 2002 Colonoscopy 2002 FIT-DNA 2002 FIT 2002 FOBT 2002 Sigmoidoscopy 2002 [facility]-Colorectal Cancer Screening 2002 [facility]-Breast Cancer Screening 2007 [facility]-Pneumococcal Vaccine: 50+ Years (1 of 1 - PCV) 2007 [facility]-RSV Vaccine: 60+ Years or (1 - Risk 50-74 years 1-dose series) 2007 [facility]-Influenza Vaccine (#1) 2025 [facility]- SDOH Screenings 02/25/2026 [facility]-Adult SDOH Screenings 02/25/2026 08/27/2025 [facility]-Depression Screening 08/29/2026 08/29/2025, 08/20 [facility]-Diabetes: Hemoglobin A1C 08/29/2026 08/29/2025, 04/06/2024, 02/01/2023, Additional history exists [facility]-Medicare Annual Wellness (AWV) 08/29/2026 08/29/2025, 04/06/2024, 02/01/2023 [facility]-Cervical Cancer Screening Discontinued [facility]-HPV/Cotest Discontinued 04/21/2017 [facility]-Pap Smear Discontinued 04/21/2017 [facility]-Obesity Intervention Completed 025, 08/29/2025, 04/06/2024, Additional history exists HPV Vaccines (No Doses Required) Completed [facility]-HIB Vaccines Aged Out No longer e ligible based on patient's age to complete this topic [facility]-Hepatitis A Vaccines Aged Out No longer eligible based on patient's age to complete this topic [facility]-IPV Vaccines Aged Out No longer e ligible based on patient's age to complete this topic [facility]-Rotavirus Vaccines Aged Out No lo nger eligible based on patient's age to complete this topic Procedures Procedure Name Priority Date/Time Associated Diagnosis Comments LIPID PROFILE, PLASMA Routine 08/29/2025 3:35 PM EST Routine general medical examination at a health care facility Mixed hyperlipidemia TSH Routine 08/29/2025 3:35 PM EST Acquired hypothyroidism Routine general medical examination at a health care facility HEMOGLOBIN A1C Routine 08/29/2025 3:35 PM EST Routine general medical examination at a health care facility Prediabetes COMPREHENSIVE METABOLIC PANEL, PLASMA Routine 08/29/2025 3:35 PM EST Routine general medical examination at a health care facility Mixed hyperlipidemia CYTO DATA CONVERSION Routine 04/21/2017 12:00 AM EDT from Last 3 Months or Most Recently Relevant to Health Maintenance Results * Thyroid Stimulating Hormone, Plasma (08/29/2025 3:35 PM EST) Thyroid Stimulating Hormone, Plasma 2.77 0.40 - 4.20 uIU/mL 08/29/2025 7:30 PM EST [facility] Blood Venous blood specimen / Unknown Venipuncture / Unknown 08/29/2025 3:35 PM EST 08/29/2025 3:35 PM EST us Alecia Diggs MD LAB BLOOD ORDERABLES Final Re sult Performing Organization Address [facility]/ZIP Co de Phone Number [facility] [address] [place] [address] * (ABNORMAL) Hemoglobin A1c (08/29/2025 3:35 PM EST) Hemoglobin A1c 6.0(H) <5.7 % 08/29/2025 8:09 PM EST [facility] Blood Venous blood specimen / Unknown Venipuncture / Unknown 08/29/2025 3:35 PM EST 08/29/2025 3:35 PM EST Narrative [facility] - 08/29/2025 8:09 PM EST HA1C Interpretive Data: Diagnosis of Diabetes: Diabetic > or = 6.5% Pre-diabetic 5.7 to 6.4% Non-diabetic < or = 5.6% Glycemic Targets for Type I and Type II Diabetics: Non- Adults <7.0% Adults <6.0% Children and Adolescents <7.5% Source: [place] [employer]. Standards of medical care in diabetes,2017. Diabetes Care.2017:40 (suppl 1):S1-S135. us Alecia Diggs MD LAB BLOOD ORDERABLES Final Re sult Performing Organization Address City/[facility] [place] [address] * (ABNORMAL) Lipid Profile, Plasma (08/29/2025 3:35 PM EST) Cholesterol, Plasma 230(H) <200 mg/dL 08/29/2025 7:30 PM EST [facility] Comment: Cholesterol Reference Range (age >17 years): Desirable <200 mg/dL Borderline 200 to 239 mg/dL Undesirable >239 mg/dL HDL 62 >=50 mg/dL 08/29/2025 7:30 PM EST [facility] Comment: HDL Cholesterol Reference Ranges (age >17 years): Female, acceptable > or = 50 mg/dL Male, acceptable > or = 40 mg/dL Triglycerides, Plasma 91 <150 mg/dL 08/29/2025 7:30 PM EST [facility] Comment: Triglyceride Reference Range (age >17 years): Desirable: <150 mg/dL Borderline high: 150 to 199 mg/dL High: 200 to 499 mg/dL Very high: >499 mg/dL Increased risk of pancreatitis: >1000 mg/dL Cholesterol/HDL Ratio 4 08/29/2025 7:30 PM EST [facility] LDL, Calculated 152(H) <100 mg/dL 7:30 PM EST [facility] Comment: LDL Cholesterol Reference Range (age [...] 12 hours? Unknown 08/29/2025 7:30 PM EST [facility] Blood Venous blood specimen / Unknown Venipuncture / Unknown 08/29/2025 3:35 PM EST 08/29/2025 3:35 PM EST us Alecia Diggs MD LAB BLOOD ORDERABLES Final Re sult [facility] [address] [place] [address] * (ABNORMAL) Comprehensive Metabolic Panel, Plasma (08/29/2025 3:35 PM EST) Glucose, Plasma 92 74 - 99 mg/dL 08/29/2025 7:30 PM EST [facility] BUN, Plasma 12 8 - 23 mg/dL 08/29/2025 7:30 PM EST [facility] Creatinine, Plasma 0.63 0.60 - 1.10 mg/dL 08/29/2025 7:30 PM EST [facility] BUN/Creatinine Ratio 19 08/29/2025 7:30 PM EST [facility] Sodium, Plasma 138 136 - 145 mmol/L 08/29/2025 7:30 PM [facility] Potassium, Plasma 3.5(L) 3.6 - 4.9 mmol/L 08/29/2025 7:30 PM [facility] Chloride, Plasma 98 97 - 107 mmol/L 08/29/2025 7:30 PM [facility] CO2, Plasma 28 22 - 29 mmol/L 08/29/2025 7:30 PM [facility] Anion Gap 12 6 - 16 mmol/L 08/29/2025 7:30 PM [facility] Total Calcium, Plasma 9.4 8.9 - 10.2 mg/dL 08/29/2025 7:30 PM [facility] Total Protein 7.5 6.3 - 7.9 g/dL 08/29/2025 7:30 PM [facility] Albumin, Plasma 4.4 3.5 - 5.2 g/dL 08/29/2025 7:30 PM [facility] AST, Plasma 18 10 - 35 U/L 08/29/2025 7:30 PM [facility] ALT, Plasma 18 10 - 35 U/L 08/29/2025 7:30 PM [facility] Alkaline Phosphatase, Plasma 106 46 - 142 U/L 08/29/2025 7:30 PM [facility] Total Bilirubin, Plasma 0.7 0.2 - 1.1 mg/dL 08/29/2025 7:30 PM [facility] eGFRcr 97.4 mL/min/1.7 3m*2 08/29/2025 7:30 PM [facility] Comment:Reported eGFRcr in m L/min/1.73m2 is based the CKD-EPI 2020 equation that does not use a race coefficient. Blood Venous blood specimen / Unknown Venipuncture / Unknown 08/29/2025 3:35 PM EST 08/29/2025 3:35 PM EST us Alecia Diggs MD LAB BLOOD ORDERABLES Final Re sult [facility] [address] [place] [address] * Cytology (04/21/2017 12:00 AM EDT) 04/21/2017 04/22/2017 9:4 1 AM EDT Narrative [facility] - 04/28/2017 2:36 PM EDT [facility] MR #: [id number] [facility] [address] [place], [place] [address] 1955 (Age: 61) FW Collect Date: 04/21/2017 00:00 Receipt Date: 04/22/2017 09:41 Page 1 DEPARTMENT OF PATHOLOGY AND LABORATORY MEDICINE CYTOPATHOLOGY REPORT Email: [email or web address] ATTENDING MD/Practitioner: Bea Diggs MD Service: [facility] Location: [facility] Reported: 04/28/2017 14:36 Collected: 04/21/2017 00:00 INTERPRETATION A. THIN PREP (CERVICAL/VAGINAL): NEGATIVE FOR INTRAEPITHELIAL LESION OR MALIGNANCY. SATISFACTORY FOR EVALUATION; ENDOCERVICAL/ TRANSFORMATION ZONE COMPONENT PRESENT. Slide scanned and imaged by [employer] ThinPrep Imaging System with manual review of all selected hardin. Electronically Signed Out By FANNY Claros (ASCP) FANNY Claros (ASCP) Cervical cytology is a screening test primarily for squamous cancers and precursors and has associated false negative and positive results. New technologies such as liquid based sampling may decrease but will not eliminate all false negative results. Regular screening and follow-up of unexplained clinical signs and symptoms are recommended to minimize false negative results. Please see the ASCCP website (www.asccp.org) for followup recommendations. If HPV testing was requested, correlation with the results is suggested (please call Microbiology at [phone] for results). CLINICAL INFORMATION: Menstrual History: Postmenopausal Date of Last Menstrual Period: unknown Other Clinical Conditions: If ASCUS and > 24 years of age, HPV/DNA testing requested. SPECIMEN DESCRIPTION: A: THIN PREP (CERVICAL/VAGINAL) THIN PREP PROCESS CELLULAR ENHANCEMENT ICD: F: A; RT IMAGE [id number] SNOMED CODES: A; I3H313 [id number] In cases where a pathologist has signed out the report, the service has been rendered in part by a resident. The signing pathologist has performed and is responsible for the reported pathologic evaluation. us Alecia Diggs MD LAB PATHOLOGY ORDERABLES Monique colon Result [facility] from Last 3 Months or Most Recently Relevant to Health Maintenance Insurance MEDICARE Care Teams Production Line Mechanic Relationship Specialty Start Date End Date Alecia Diggs MD [facility] [place] [address] PCP - General 01/31/21 Carla Brown LPN VALUE-BASED TRANSFORMATION PROGRAM None Licensed Practical Nurse 08/23/25
--- OUTSIDE RECORDS SUMMARY | 2025-09-04 13:24 | XMS_ITS | Encounter Summary ---
Author Organization [facility] Address [address] [id number] Care Team Providers Care Radar Signal Processing Engineer Name Role Phone Alecia Diggs MD Primary Care Provider Reason for Visit * Reason Comments Med Refill Encounter Details Date Type Department Care Team (Late st Contact Info) Description 08/06/2025 Refill [facility] [address] [place] [address] Alecia Diggs MD [address] [place] [address] Acquired hypothyroidism Social History Tobacco [...] often do you attend chur ch or buddhist services? 1 to 4 times per year 03/30/2024 Do you belong to any clubs o r organizations such as pentecostal groups, unions, fraternal or athletic groups, or [...] Recorded Patient Health Questionnaire-2 Score 0 04/06/2024 [facility] - Occupational Stress Questionnaire Answer Date Recorded [...] place to sleep or slept in a fdc (including now)? No 03/30/2024 Utilities Answer Date [...] encounter Miscellaneous Notes * Telephone Encounter - Chuyita Tay RN - 08/07/2025 4:[address] Diggs, needs appointment for levothyroxine refill. Appt scheduled 08/29/25. Med pended toappt for provider approval * Telephone Encounter - Alecia Diggs MD - 08/07/2025 4:43 PM EST Needs appt documented in this encounter Plan of Treatment [...] documented as of this encounter Care Teams Radar Signal Processing Engineer Relationship Specialty Start Date End Date Alecia Diggs MD [address] [place] [address] PCP - General 01/31/21 documented as of this encounter
--- OUTSIDE RECORDS SUMMARY | 2025-09-04 13:24 | XMS_ITS | Encounter Summary ---
Author Organization Healthcare Address [facility] [place] [facility] [place] [address] [place] [id number] Care Team Providers Care Head Inspector Name Role Phone Alecia Diggs MD Primary Care Provider [phone] Carla Brown TOURIST CABIN KEEPER Unavailable Unavailab le Reason for Visit * Reason Onset Date Comments HCN Clinical Concern/Question 08/30/2025 Th yroid medication Encounter Details Date Type Department Care Team (Late st Contact Info) Description 08/30/2025 Telephone [facility] [address] [place] [address] Alecia Diggs MD [address] [place] [address] [facility]CN Clinical Concern/Question (Thyroid medication) Social History Tobacco Use Types Packs/Day Years [...] often do you attend chur ch or taoism services? 1 to 4 times per year 03/30/2024 Do you belong to any clubs o r organizations such as gnosticism groups, unions, fraternal or athletic groups, or [...] more drinks on one occasion? Never 08/27/2025 [facility] [place] of Occupat ional Health - Occupational Stress [...] any time in the past 12 m [facility], were you homeless or living in a chcf (including now)? No 08/27/2025 [facility] Utilities Answer Date Recorded In the past [...] encounter Miscellaneous Notes * Telephone Encounter - Amanda Pete - 08/30/2025 4:59 PM EST Called and pt stated she already spoke to someone earlier about this with her lab results. * Telephone Encounter - Ling Mcdermott - 08/30/2025 10:30 AM EST Clinical Concern/Question Reason for Call: pt called to make sure the thyroid medication called is yesterday is ok to continuous pickling line pickler helper. Pt had labs drawn and didn't know if the dose needed to be increased or not. Please call to advisecorrect dosage at pharm Best contact number: [phone] (mobile) Optimal time of day to reach caller: ANYTIME Additional comments/information from caller: None Note: Please do not reply to this message. Follow-up communication and further actions as a result of this message need to be communicated with the patient directly, if the patient is not active onMyChart. If the patient is active on MyChart, they will receive notification of the communication/outcome via [employer]. documented in this encounter Plan of Treatment [...] documented as of this encounter Care Teams Head Inspector Relationship Specialty Start Date End Date Alecia Diggs MD [address] [place] [address] PCP - General 01/31/21 Carla Brown LPN VALUE-BASED TRANSFORMATION PROGRAM None Licensed Practical Nurse 08/23/25 documented as of this encounter
--- OUTSIDE RECORDS SUMMARY | 2025-09-04 13:24 | XMS_ITS | Encounter Summary ---
Author Organization Healthcare Address [address] [place] [address] Care Team Providers Care Open Hearth Furnace Operator Helper Name Role Phone Alecia Diggs MD Primary Care Provider [phone] Carla Brown LPN Unavailable Unavailab le Reason for Visit * Reason Comments AWV Encounter Details Date Type Department Care Team (Late st Contact Info) Description 08/23/2025 Patient Outreach [facility] [address] [facility] [place] [address] Carla Brown LPN VALUE-BASED TRANSFORMATION [...] often do you attend chur ch or shinto services? 1 to 4 times per year [...] Recorded Patient Health Questionnaire-2 Score 0 04/06/2024 [facility] of Occupat ional Health - Occupational Stress [...] place to sleep or slept in a alf (including now)? No 03/30/2024 Utilities Answer Date [...] Progress Notes - Carla Brown LPN - 08/23/2025 10:04 AM EST 08/23/2025 AWV Call # 1 Patient Reached: N Outcome: Unable to reach patient for AWV screening. LVM and call back number for return call. documented in this encounter Plan of Treatment [...] documented as of this encounter Care Teams Open Hearth Furnace Operator Helper Relationship Specialty Start Date End Date Alecia Diggs MD [facility] [place] [phone] PCP - General 01/31/21 Brown, Carla G, DOCUMENT CONTROL ASSOCIATE VALUE-BASED TRANSFORMATION PROGRAM None Licensed Practical Nurse 08/23/25 documented as of this encounter
== END 2025-09-04 23:59 | disposition home or self-care (01) ==
PROVIDERS: PCP Family Medicine; Visit Provider Family Medicine
DX: R01.1 Cardiac murmur, unspecified (principal)
CPT/HCPCS: 93306